=== PATIENT | female | born 1965 | race Caucasian/White ===

== ENCOUNTER → 2016-05-20 | Outpatient (CLI) | payer OTHER ==
[~2016-05-20] MED LIST: ADULT LOW DOSE81 MG PO; ALLERGY RELIEF10 M3 PO; BENADRYL 25MG C25 MG TOP; BUSPIRONE HCL5 MG PO; COZAAR25 MG PO; DICYCLOMINE HCL20 MG PO; DULERA 100 MCG8.8 GM INH; FLONASE ALLER15.8 ML; GLUCOPHAGE 500500 MG PO; GLUCOPHAGE1000 MG PO; GLUCOPHAGE850 MG PO; IBUPROFEN800 MG PO; IPRAT-ALBUT 0.5-3 ML INH; LIORESAL TAB 1010 MG PO; LOPRESSOR 25 MG25 MG GT; NEURONTIN 300300 MG PO; NOVOLOG FL100 UNIT/1 SQ; OMEPRAZOLE40 MG PO; SINGULAIR10 MG PO; TYLENOL 325MG325 MG PO; VENTOLIN HFA 66.7 GM INH; VICTOZA 3-0.6 MG/0.1 SQ; VITAMIN B-1000 MCG/M IM; ZANTAC150 MG PO; ZOCOR20 MG PO
== END ==
LOC: MAMO 04-22 14:20
DX: Z12.31 Encounter for screening mammogram for malignant neoplasm of breast (principal)
CPT/HCPCS: G0202

== ENCOUNTER → 2016-07-29 | Outpatient (CLI) | payer OTHER | LOC: LAB 10:27 | DX: R09.02 Hypoxemia (principal) | CPT/HCPCS: 36600; 82803 ==

== ENCOUNTER 2020-06-25 18:32 | Emergency (ER) | payer OTHER ==
[~2020-06-25 18:32] MED LIST changes: +DOXYCYCLINE HY100 MG PO; +FERROUS SULFAT325 MG PO; +FISH OIL 1,0001 EACH PO; +GLUCOPHAGE 850850 MG PO; +HUMALOG MI100 UNIT/3 SQ; +INCRUSE ELLI62.5 MCG INH; +LEVOFLOXACIN500 MG PO; +LIPITOR TAB 2020 MG PO; -LOPRESSOR 25 MG25 MG GT; +LOPRESSOR 25 MG25 MG PO; +LOSARTAN POTAS100 MG PO; -NEURONTIN 300300 MG PO; +NEURONTIN600 MG PO; +PREDNISONE20 MG PO; +PREDNISONE50 MG PO; +PULMICORT0.25 MG/2 INH; +ROPINIROLE HCL0.5 MG PO; +TESSALON PERLE100 MG PO; +VITAMIN B-650 MG PO; +VITAMIN D21250 MCG PO; -ZOCOR20 MG PO
[2020-06-25 19:21] LABS: HEMOGLOBIN 11.4 gm/dl (12.3-15.3); RED BLOOD COUNT 3.9 M/UL (4.00-5.10); WHITE BLOOD COUNT 8.6 K/UL (4.5-11.0)
[2020-06-25 19:40] LABS: BUN/CREATININE RATIO 19 (0-10)
== END 2020-06-25 22:26 | disposition home or self-care (01) ==
LOC: ER1 18:32
PROVIDERS: Emergency Medicine
DX: R07.89 Other chest pain (principal); R42 Dizziness and giddiness; J44.9 Chronic obstructive pulmonary disease, unspecified; Z20.822 Contact with and (suspected) exposure to COVID-19; I10 Essential (primary) hypertension; E11.9 Type 2 diabetes mellitus without complications; Z88.8 Allergy status to other drugs, medicaments and biological substances
CPT/HCPCS: 0240U; 71045; 80053; 82550; 82553; 82962; 83735; 83874; 83880; 84100; 84484; 85025; 85379; 85610; 85730; 93005; 99285; Q9967

== ENCOUNTER → 2020-07-04 | Outpatient (CLI) | payer OTHER | LOC: EXRD 13:57 | DX: R60.0 Localized edema (principal) | CPT/HCPCS: 93971 ==

== ENCOUNTER → 2020-07-17 | Outpatient (CLI) | payer OTHER | LOC: ECHO 10:07 | DX: R60.9 Edema, unspecified (principal); I07.1 Rheumatic tricuspid insufficiency | CPT/HCPCS: ECHO; 93306 ==

== ENCOUNTER → 2021-01-15 | Outpatient (CLI) | payer OTHER | LOC: MAMO 11:09 | DX: Z12.31 Encounter for screening mammogram for malignant neoplasm of breast (principal) | CPT/HCPCS: 77063; 77067 ==

== ENCOUNTER 2021-06-23 00:05 | Emergency (ER) | payer OTHER ==
[2021-06-23 00:36] LABS: HEMOGLOBIN 12.1 gm/dl (12.3-15.3); RED BLOOD COUNT 4.19 M/UL (4.00-5.10)
[2021-06-23 00:56] LABS: BUN/CREATININE RATIO 18 (0-10)
== END 2021-06-23 05:10 | disposition home or self-care (01) ==
LOC: ER1 00:05
PROVIDERS: Student in an Organized Health Care Education/Training Program
DX: R07.2 Precordial pain (principal); R10.84 Generalized abdominal pain; E11.9 Type 2 diabetes mellitus without complications; E78.5 Hyperlipidemia, unspecified; I10 Essential (primary) hypertension; K21.9 Gastro-esophageal reflux disease without esophagitis; J44.9 Chronic obstructive pulmonary disease, unspecified
CPT/HCPCS: 71045; 80053; 81001; 82550; 82553; 83690; 84484; 85025; 87086; 93005; 96374; 99285; C9113; Q9967

== ENCOUNTER 2021-10-29 17:26 | Emergency (ER) | payer OTHER ==
[2021-10-29 17:49] LABS: HEMOGLOBIN 11.2 gm/dl (12.3-15.3); RED BLOOD COUNT 3.78 M/UL (4.00-5.10); WHITE BLOOD COUNT 8.9 K/UL (4.5-11.0)
[2021-10-29 18:34] LABS: BUN/CREATININE RATIO 14 (0-10)
[2021-10-29] MEDS ORDERED: DOXYCYCLINE HY100 MG PO (22:03)
[2021-10-29] MEDS ORDERED: PREDNISONE 50 M50 MG PO (22:03)
== END 2021-10-29 22:15 | disposition home or self-care (01) ==
LOC: ER1 17:26
PROVIDERS: Family Medicine
DX: R06.02 Shortness of breath (principal); I11.9 Hypertensive heart disease without heart failure; I25.2 Old myocardial infarction; E11.9 Type 2 diabetes mellitus without complications; Z79.4 Long term (current) use of insulin; J44.9 Chronic obstructive pulmonary disease, unspecified; E78.5 Hyperlipidemia, unspecified; Z20.822 Contact with and (suspected) exposure to COVID-19
CPT/HCPCS: 71045; 80053; 82550; 82553; 84484; 85025; 93005; 99285; U0002